=== PATIENT | female | born 1995 | race Caucasian/White ===

== ENCOUNTER → 2018-10-03 | Outpatient (CLI) | payer MEDICAID ==
[~2018-10-03] MED LIST: CYAN100071 SL; DIPH0.5D12 IM; PREN-127 PO
[2018-10-03 10:29] LABS: PLATELET COUNT, AUTOMATED 300 K/uL (150-450)
== END ==
LOC: LAB 08:31
PROVIDERS: ATTEND Advanced Practice Midwife
DX: Z34.02 Encounter for supervision of normal first pregnancy, second trimester (principal)
CPT/HCPCS: 36415; 82950; 85025

== ENCOUNTER → 2018-11-24 | Outpatient (CLI) | payer MEDICAID | LOC: LAB 08:55 | PROVIDERS: ATTEND Advanced Practice Midwife | DX: Z36.85 Encounter for antenatal screening for Streptococcus B (principal) | CPT/HCPCS: 87081 ==

== ENCOUNTER 2018-12-17 03:53 | Inpatient (IN) | payer BC, MEDICAID ==
[~2018-12-17] VITALS: Ht 162.6 cm; Wt 81.6 kg
[~2018-12-17 03:53] MED LIST changes: -DIPH0.5D12 IM; +DIPH0.5S2 IM
[2018-12-17 04:00] VITALS: BP 134/83; Ht 162.6 cm; Wt 81.6 kg
[2018-12-17] MEDS ORDERED: FAMOTIDINE(*) 20MG/50ML PREMIX 50 ML IVPB PRN (04:34)
[2018-12-17] MEDS ORDERED: OXYTOCIN 30 UNIT/D5LR 500 ML 500 ML IV PRN (04:34)
[2018-12-17] MEDS ORDERED: LR(*) 1000 ML BAG 1,000 ML IV SCH (04:34)
[2018-12-17] MEDS ORDERED: LIDOCAINE/SOD BICARB 8.4% SYR SC PRN (04:35)
[2018-12-17] MEDS ORDERED: FLUSH 10 ML SYR IVP PRN (04:35)
[2018-12-17] MEDS ORDERED: fentaNYL CITR 100 MCG/2 ML AMP IVP PRN (04:35)
[2018-12-17] MEDS ORDERED: METOCLOPRAMIDE 10 MG/2 ML SDV IVP PRN (04:35)
[2018-12-17] MEDS ORDERED: LIDOCAINE 1% LOCAL 300 MG/30ML INJ PRN (04:35)
[2018-12-17] MEDS ORDERED: fentaNYL CITR 100 MCG/2 ML AMP IT PRN (05:05)
[2018-12-17] MEDS ORDERED: FENTANYL/ROPIVACAINE 100 ML BAG EPI PRN (05:05)
[2018-12-17] MEDS ORDERED: BUPIVACAINE 0.25% MPF INJ EPI PRN (05:05)
[2018-12-17] MEDS ORDERED: BUPIVACAINE 0.5% INJ 30ML VIAL EPI PRN (05:05)
[2018-12-17] MEDS ORDERED: LIDO/EPI 2% MPF 1:200,000 20ML EPI PRN (05:05)
[2018-12-17] MEDS ORDERED: LIDOCAINE/PF 2% 200MG/10ML AMP 200 MG/10 ML AMPUL EPI PRN (05:05)
[2018-12-17 05:08] LABS: PLATELET COUNT, AUTOMATED 247 K/uL (150-450)
--- NOTE | 2018-12-17 06:54 | History & Physical ---
History of Present Illness Age of Patient: 23 : 1 Para or TPAL: 0 EDC per LMP: Dec 17, 2018 EDC per U/S: Dec 17, 2018 Estimated Gestational Age: 40 Chief Complaint "contractions that started at 1700 last night" History of Present Illness Pt is a 23y/o at 40 0/7 wks by L and 16 US that presents to OB with report of contractions that started at 1700 last night. States she was unable to sleep much as UCs got more regular and strong. Pt denies LOF but is having some bloody show. Reports some low back and mild pelvic pressure. Denies MARR epigastric pain or visual changes and no edema. Pt is accompanied by her family and Collin SUAZO. Pt plans to breastfeed and desires NCB. History Patient's Blood Type: O Positive Rubella Status: Non-Immune Group B Strep Screen: Negative Obstetrical History: Pt initiated care at 17 2/7 with [facility]. Had US that was consistent with LMP. Pt has had uninterrupted care. No complications in this Past Medical History: Pt reports hx of celiac. Taking vitamins. Hx of bipolar depression, not on meds. Allergies: Coded Allergies: No Known Drug Allergies (Unverified , 09/25/18) Social History: Denies alcohol tobacco or drug use. Family History: Patient reports no known family medical history. Med Rec Home Meds Reported Medications Cyanocobalamin (Vitamin B-12) (VITAMIN B-12) 1,000 Mcg Tab.subl, 1000 MCG SL 09/25/18 Vits W-Ca,Fe,Fa(<1MG) ( VITAMINS) 1 Each Tablet, 1 EACH PO DAILY, TAB 09/25/18 Review of Systems Constitutional: No Fever Eyes: No Vision Change Cardiovascular: No Palpitations Respiratory: No Shortness of Breath Gastrointestinal: Nausea; No Vomiting, No Diarrhea Genitourinary: No Dysuria Musculoskeletal: Pain (reports low pelvic pressure and low back discomfort) Psychiatric: No Depression Exam General Exam Vital Signs Vital Signs Date Time Temp Pulse Resp B/P (MAP) Pulse Ox O2 Delivery O2 Flow Rate FiO2 12/17/18 04:00 98.4 96 16 134/83 (100) 95 Room Air General Apperance: Alert/Awake/No Acute Distress Neuro: No Headache Cardiovascular: Regular Rate and Rhythm Respiratory: Clear to Auscultation Abdomen: Soft, Non-Tender, Non-Distended, Gravid - Non-Tender Extremities: Warm, Reflexes (2+); No Edema Psychological: Alert & Oriented X3, Appropriate Mood & Affect Vaginal Discharge/Fluid?: Bloody Show Cervical Dialation: 4 Cervical Effacement (%): 60 Cervical Consistency: Soft Station: -1 Presentation: Vertex Uterine Contractions(Q min): 4 Uterine Contraction Strength: Moderate UC Resting Tone: Soft Fetus Heart Tones: 140 Heart Tone Variabilty: Moderate FHT Accelerations: 15X15 FHT Decelerations: None FHT Category: I Medical Decision Making Data Points Result Diagram: 12/17/18 0454 GBS negative VTE Prophylasis: Adult Deep Vein Thrombosis/Pulmonary: No Pharmacological Contraindicati: Pt at Low Risk for VTE Mechanical Contraindications: Pt at Low Risk for VTE Assessment and Plan AWNINGS MECHANIC Assessment: Stable AWNINGS MECHANIC Plan: Routine Labor Care Problems: (1) Spontaneous onset of labor Assessment & Plan: 1. Labor State: early labor 2. well being: Cat 1 3. Maternal wellbeing: VSS, afebrile 4. PNL: O+ Neg screen , non immune Rubella, HIV neg, HepB neg, GC/CT neg, NL pap, declined early screen 5. pain mgmt: desires NCB , coping well with contractions, ambulatory and trying tub 6. Plans to breastfeed 7. C/B: celiac 8. Plan to expectantly manage, encourage position change, tub, birthing ball, anticipate (2) Uterine contractions (3) Not immune to rubella Assessment & Plan: Informed pt of non immune status will reimmunize (4) Rubella non-immune status, antepartum MAYCO GASPAR CNM Dec 17, 2018 06:50
--- NOTE | 2018-12-17 11:39 | Labor Progress Note ---
Labor Subjective Progress Notes Feeling Movement?: Yes Vaginal Discharge/Fluid: Bloody Show Labor Pain: Moderate (feeling pressure) Neurological: No Headache Labor Objective Vital Signs Vital Signs Date Time Temp Pulse Resp B/P (MAP) Pulse Ox O2 Delivery O2 Flow Rate FiO2 12/17/18 04:00 98.4 96 16 134/83 (100) 95 Room Air Vaginal Discharge/Fluid?: Bloody Show Cervical Dialation: 8 (at 945) Cervical Effacement (%): 100 Station: +1 Presentation: Vertex Uterine Contractions(Q min): 3 Uterine Contraction Strength: Strong UC Resting Tone: Soft Fetus Heart Tones: 130 Heart Tone Variabilty: Moderate FHT Accelerations: 15X15 FHT Decelerations: None FHT Category: I General Exam General Appearance: Alert/Awake/No Acute Distress Psychological: Alert & Oriented X3 Other Result Diagram: 12/17/18 0454 Assessment and Plan Problems: (1) Spontaneous onset of labor Assessment & Plan: Active labor, urge to push, Cat 1 FHT 1. Anticipate (2) Uterine contractions (3) Not immune to rubella (4) Rubella non-immune status, antepartum MAYCO GASPAR CNM Dec 17, 2018 11:39
--- NOTE | 2018-12-17 12:11 | OB Delivery Note ---
Delivery Note Vaginal Delivery Type: Spont. Vaginal Delivery Delivery Date: Dec 17, 2018 Delivery Time: 10:41 Estimated Gestational Age(wks): 40 Length of Labor Stage I (hrs): 6 Length of Labor Stage II (hrs): 21 (min) Labor Stage III (minutes): 6 (min) Delivery Anesthesia: Local Sex: Female [place] Apgars: 1 Minute (9), 5 Minute (9) Repair Needed: Laceration, 2nd Degree Estimated Blood Loss: 300 Delivery Complications: Laceration Notes: Pt presented at 0400 this am in early labor, 4/60%/-1 membranes intact with a Cat 1 FHR tracing. Pt was expectantly managed, desired NCB. Pt progressed to 8/90/+1 at 0940 with increasing urge to push. Reassessed at 1017 and was an anterior rim. Pt continued to feel urge to push an SROM at 1020 and complete. Pt continued pushing in a side lying position. Baby delivered in a YAMILEX position with bilateral compound hands. Female baby was placed on mothers abdomen. Cord clamping delayed x 90 sec. Cord was clamped and cut by dad. Cord blood obtained. 3vc noted. [facility]. Perineum was inspected, 2nd degree laceration repaired with 3-0 vicryl under local anesthetic.Vault inspected, no further lacerations. EBL 300. FF@U scant. Mom and baby stable at time of note. Lap and 4X4 count correct, sharps disposed of . Ironworker Apprentice in Attendence: MAYCO Devi CNM Dec 17, 2018 12:10
[2018-12-17] MEDS ORDERED: MAGNESIUM HYDROXIDE* 30ML UDCP PO PRN (12:15)
[2018-12-17] MEDS ORDERED: GLYCERIN/WITCH HAZEL LEAF 1 PK TP PRN (12:15)
[2018-12-17] MEDS ORDERED: LANOLIN OINT 7 GM TUBE TP PRN (12:15)
[2018-12-17] MEDS ORDERED: HYDROCORTISONE 2.5% CR 30GM TB PR PRN (12:15)
[2018-12-17] MEDS ORDERED: BENZOCAINE 20% 60 ML BTL TP PRN (12:15)
[2018-12-17] MEDS ORDERED: ACETAMINOPHEN 325 MG TAB PO PRN (12:15)
[2018-12-17 12:20] VITALS: BP 118/61
[2018-12-17] MEDS: IBUPROFEN 800 MG TAB PO SCH ×2 (13:35→21:51)
[2018-12-17 15:15] VITALS: BP 108/55
[2018-12-17] MEDS ORDERED: LIDOCAINE 1% LOCAL 300 MG/30ML 30 ML ONE (16:15)
[2018-12-17 19:40] VITALS: BP 114/57
[2018-12-17] MEDS: DOCUSATE CALCIUM 240 MG CAP PO SCH (21:51)
[2018-12-18 00:30] VITALS: BP 120/60
[2018-12-18 04:30] VITALS: BP 107/57
[2018-12-18] MEDS: IBUPROFEN 800 MG TAB PO SCH ×2 (05:17→13:46)
[2018-12-18 07:45] VITALS: BP 108/59
[2018-12-18] MEDS: DOCUSATE CALCIUM 240 MG CAP PO SCH (08:58)
[2018-12-18] MEDS ORDERED: MULTIVITAMINS (PRENATAL) TAB PO SCH (09:00)
--- NOTE | 2018-12-18 09:48 | OB/GYN Progress Note ---
OB Subjective Progress Notes Subjective Pt reports nursing well. Denies acute discomfort. May be interested in going home tonight. Has FOC for support and maybe some family members GI: POS Flatus; NEG Nausea, NEG Vomiting, NEG Bowel Movement : Voiding Well, Vaginal Bleeding, Scant Pain: Moderate, Tolerating PO Pain Meds Neurological: No Headache, No Other OB Objective Physical Exam Vital Signs Date Time Temp Pulse Resp B/P (MAP) Pulse Ox O2 Delivery O2 Flow Rate FiO2 12/18/18 04:30 97.2 75 16 107/57 (74) 12/17/18 12:20 94 12/17/18 04:00 Room Air Intake and Output 12/18/18 07:00 Intake Total 810 ml Balance 810 ml Intake IV Total 810 ml # Voids 3 General Appearance: Alert/Awake/No Acute Distress Respiratory: Clear to Auscultation Abdomen: Soft, Non-Tender, Non-Distended, Fundus Firm, Non-Tender Extremities: Warm, Reflexes (2+); No Edema Integumentary: Skin Intact without Lesions or Rash (Breasts soft, nipples intac t. ) Psychological: Alert & Oriented X3 Result Diagram: 12/18/18 0558 Assessment and Plan LOGISTICS SUPPORT Plan: Routine Post- Care (1. continue to working breast feeding and teaching. 2. MMR prior to discharge. 3. Possibly DC tonight. ) Problems: (1) Spontaneous onset of labor (2) Uterine contractions Status: Resolved (3) Not immune to rubella Assessment & Plan: Non Immune P: 1. Immunization prior to discharge. (4) Rubella non-immune status, antepartum MAYCO GASPAR CNM Dec 18, 2018 09:48
[2018-12-18 12:55] VITALS: BP 123/59
[2018-12-18] MEDS ORDERED: IBUP800T37 PO (18:17)
--- NOTE | 2018-12-18 18:21 | OB/GYN Discharge Summary ---
Discharge Summary Reason for Hosp/Final Diag: (1) Spontaneous onset of labor Status: Resolved Hospital Course & Plan: Pt presented to the hospital in Active labor. She progressed to complete and delivered with out any difficulty. See delivery note for details of procedure. Pt remained in the hospital for 1 day post . She was meeting post goals and desired to be discharged home. She was dc'd on PPD #1. (2) Uterine contractions Status: Resolved (3) Not immune to rubella (4) Rubella non-immune status, antepartum [place] Vital Signs Vital Signs Date Time Temp Pulse Resp B/P (MAP) Pulse Ox O2 Delivery O2 Flow Rate FiO2 12/18/18 04:30 97.2 75 16 107/57 (74) 12/17/18 12:20 94 12/17/18 04:00 Room Air Weight (Pounds): 180 Result Diagram: 12/18/18 0558 Condition: Improved Discharge: Home Home Meds Reported Medications Cyanocobalamin (Vitamin B-12) (VITAMIN B-12) 1,000 Mcg Tab.subl, 1000 MCG SL 09/25/18 Vits W-Ca,Fe,Fa(<1MG) ( VITAMINS) 1 Each Tablet, 1 EACH PO DAILY, TAB 09/25/18 Follow up with: [facility] [phone] Follow up in: 6 wks PP or PO, 2 wks PO Discharge Diet: As Tolerates Discharge Activity: As Tolerates, Pelvic Rest EUGENIO KYLE DO Dec 18, 2018 18:21
[2018-12-19] MEDS ORDERED: MEASLES,MUMP,RUBELLA VAC 0.5ML SUBQ ONE (09:00)
== END 2018-12-18 20:20 | disposition home or self-care (01) | DRG 807 ==
LOC: OB 03:53
PROVIDERS: ADMIT Obstetrics & Gynecology; ATTEND Obstetrics & Gynecology
PROC: 10E0XZZ Delivery of Products of Conception, External Approach (ICD-10-PCS; principal; 2018-12-17)
PROC: 0KQM0ZZ Repair Perineum Muscle, Open Approach (ICD-10-PCS; 2018-12-17)
DX: O62.9 Abnormality of forces of labor, unspecified (principal); Z37.0 Single live birth; K90.0 Celiac disease; O99.62 Diseases of the digestive system complicating childbirth; O99.344 Other mental disorders complicating childbirth; F31.9 Bipolar disorder, unspecified; Z3A.40 40 weeks gestation of pregnancy; O70.1 Second degree perineal laceration during delivery
CPT/HCPCS: 36415; 85025; 85027; 86850; 86900; 86901; 90707; J2001